=== PATIENT | male | born 1970 | race Caucasian/White ===

== ENCOUNTER 2018-01-03 13:42 | Emergency (ER) | payer BC, OTHER ==
[~2018-01-03] VITALS: Ht 175.3 cm; Wt 90.0 kg
[~2018-01-03 13:42] MED LIST: CYCL-36 PO; LORC10TA PO; MORP15TA3 PO; Z.0.NO CURRENT MEDS
[2018-01-03 13:52] VITALS: BP 157/100; PULSE 83; RESP 16; TEMP 98.5; O2SAT 99
[2018-01-03] MEDS ORDERED: NAPR500T2 PO (13:58)
--- NOTE | 2018-01-03 14:29 | PD ---
HPI Chief Complaint: Musculoskeletal Complaint Time Seen by Provider: 14:13 Travel History International Travel<30 days: No Contact w/Intl Traveler<30days: No Traveled to known affect area: No History of Present Illness HPI 47-year-old male presents to the emergency department for evaluation of right and left rib pain. Patient was diagnosed with a right sixth through ninth rib fracture at urgent care recently. Patient states he was doing okay until he had a sneezing fit yesterday evening and today which worsened his rib pain. Patient currently rates the pain 8/10 without radiation. Patient states the pain is on the bilateral sides of the sternum. Movement, sneezing, coughing will exacerbate the pain. Sitting still has alleviated the pain. Moderate severity. PFSH Past Medical History Medical History: Denies Significant Hx Arthritis: No Asthma: No Heart Rhythm Problems: No Cardiovascular Problems: No High Cholesterol: No Chest Pain: No Congestive Heart Failure: No COPD: No Cerebrovascular Accident: No GERD: No Genitourinary: No Headaches: No Hepatitis: No Hiatal Hernia: No Hypertension: No Kidney Stones: No Musculoskeletal: No Neurologic: No Reproductive: No Respiratory: No Migraines: No Myocardial Infarction: No Renal Failure: No Seizures: No Sleep Apnea: No Ulcer: No Influenza Vaccination: No Past Surgical History Surgical History: No Previous Surgery Abdominal Surgery: No Appendectomy: No Cardiac Surgery: No Cholecystectomy: No Ear Surgery: No Endocrine Surgery: No Eye Surgery: No Genitourinary Surgery: No Gynecologic Surgery: No Oral Surgery: No Thoracic Surgery: No Social History Alcohol Use: Yes (DAILY) Tobacco Use: No Substance Use: No Allergies-Medications (Allergen,Severity, Reaction): Coded Allergies: penicillin G (Unverified Allergy, Severe, PT STATES "I AM NOT SURE", ) Reported Meds & Prescriptions Reported Meds & Active Scripts Active Reported Naproxen 500 Mg Tab 1,000 Mg PO DAILY Review of Systems Except as stated in HPI: all other systems reviewed are Neg Physical Exam Narrative GENERAL: Well-nourished, well-developed male patient, afebrile. SKIN: Focused skin assessment warm/dry. HEAD: Normocephalic. Atraumatic. EYES: No scleral icterus. No injection or drainage. NECK: Supple, trachea midline. No JVD or lymphadenopathy. CARDIOVASCULAR: Regular rate and rhythm without murmurs, gallops, or rubs. RESPIRATORY: Breath sounds equal bilaterally. No accessory muscle use. Lungs sounds are clear to auscultation. GASTROINTESTINAL: Abdomen soft, non-tender, nondistended. MUSCULOSKELETAL: No cyanosis, or edema. Patient has tenderness to palpation over anterior chest wall. BACK: Nontender without obvious deformity. No CVA tenderness. Data Data Last Documented VS Vital Signs Date Time Temp Pulse Resp B/P (MAP) Pulse Ox O2 Delivery O2 Flow Rate FiO2 01/03/18 15:29 18 01/03/18 13:52 98.5 83 157/100 (119) 99 Orders Orders Chest, Single Ap (01/03/18 ) Acetamin-Hydrocod 325-5 Mg ([place] 5-325 (01/03/18 14:30) MDM Medical Decision Making Medical Screen Exam Complete: Yes Emergency Medical Condition: Yes Medical Record Reviewed: Yes Interpretation(s) x-ray chest - CONCLUSION: Contiguous right sixth, seventh, and eighth posterior lateral rib fractures healing. Otherwise negative no pneumothorax, effusion, or pulmonary abnormality. Differential Diagnosis Rib fracture versus rib contusion versus pneumothorax versus pneumonia Narrative Course 47-year-old male presents to the emergency department for evaluation of known rib fractures, worse after sneezing last night and today. X-ray of the chest is ordered and pending. Patient is given [place] 5/25 mg by mouth for pain. X-ray of the chest shows contiguous right sixth, seventh, and eighth posterior lateral rib fractures healing. Otherwise negative no pneumothorax, effusion , or pulmonary abnormality. Patient states he an incentive spirometer at home. He is instructed to use this. He'll be discharged with a short-term prescription for [place] for pain. The patient was discharged in stable condition with instructions, including return instructions and follow up instructions. Diagnosis Primary Impression: Multiple rib fractures Qualified Codes: S22.41XD - Multiple fractures of ribs, right side, subsequent encounter for fracture with routine healing Referrals: Primary Care Physician call for appointment Patient Instructions: General Instructions, Narcotic given in the ED, Rib Fracture (ED) Additional Instructions: Use incentive spirometer and make sure you take deep breaths. Take [place] as directed as needed for moderate to severe pain. Take your naproxen as instructed as needed for [id number] pain. Follow-up with your primary care physician. Return to the emergency department for any acute worsening of symptoms. Med/Other Pt SpecificInfo: Prescription(s) given Scripts Hydrocodone-Acetaminophen ([place]) 5 Mg-325 Mg Tab 1 TAB PO Q6H Y for PAIN, #12 TAB 0 Refills Prov: Lorelei Borrero 01/03/18 Disposition: 01 DISCHARGE HOME Condition: Stable Lorelei Borrero Jan 03, 2018 14:29
[2018-01-03] MEDS ORDERED: ACETAMINOPHEN/HYDROcodone 325 MG/5 MG TAB PO ONE (14:30)
[2018-01-03 15:29] VITALS: RESP 18
--- NOTE | 2018-01-03 15:51 | RADRPT ---
EXAM DATE/TIME: 01/03/2018 15:34 [facility] COMPARISON: No previous studies available for comparison. INDICATIONS : Patient has right side rib fractures from injury 3 weeks ago, has sneezing fit this am, no having inc reasing right side chest pain MEDICAL HISTORY : Right side rib fractures SURGICAL HISTORY : None. ENCOUNTER: Subsequent ACUITY: 1 day PAIN SCORE: 5/10 LOCATION: Right chest FINDINGS: A single view of the chest demonstrates the lungs to be symmetrically aerated without evidence of mas s, infiltrate or effusion. The cardiomediastinal contours are unremarkable. There are contiguous rig ht rib fractures #6, 7, and 8 posterior laterally which are probably in the state of healing. CONCLUSION: Contiguous right sixth, seventh, and eighth posterior lateral rib fractures healing. Otherwise ne gative no pneumothorax, effusion, or pulmonary abnormality. Erasmo Velasquez MD on January 03, 2018 at 15:46 Board Certified Radiologist. This report was verified electronically.
[2018-01-03] MEDS ORDERED: NORC5TAB PO (16:03)
== END 2018-01-03 16:10 | disposition home or self-care (01) ==
LOC: PHEFT 13:42
DX: S22.41XD Multiple fractures of ribs, right side, subsequent encounter for fracture with routine healing (principal); X58.XXXD Exposure to other specified factors, subsequent encounter; Z88.0 Allergy status to penicillin
CPT/HCPCS: 71045; 99283